=== PATIENT | female | born 1950 | race Caucasian/White ===

== ENCOUNTER 2022-02-14 09:18 | Observation (INO) | payer BC, MEDICARE ==
--- NOTE | 2022-02-14 11:03 | CT ---
EXAMINATION TYPE: CT brain wo con DATE OF EXAM: 02/14/2022 COMPARISON: None HISTORY: 71-year-old female confusion, shaky, ams TECHNIQUE: Examination was done in axial plane without intravenous contrast. Coronal and sagittal r econstructions performed. CT DLP: 1113.4 mGycm Automated exposure control for dose reduction was used. FINDINGS: There is no evidence of acute intracranial hemorrhage, acute ischemic changes, mass, mass-effect, or extra-axial fluid collection. There is no effacement of cerebral sulci or basal subarachnoid cister ns. There is no hydrocephalus. There is no midline shift. Friedman-white matter distinction is preserv ed. Paranasal sinuses and mastoid air cells are well-pneumatized. Visualized orbits and globes are intact . IMPRESSION: No acute intracranial abnormality seen.
--- NOTE | 2022-02-14 11:04 | XR ---
EXAMINATION TYPE: XR chest 2V DATE OF EXAM: 02/14/2022 COMPARISON: None HISTORY: 71-year-old female confusion, dizziness, altered mental status TECHNIQUE: AP and lateral views FINDINGS: Heart normal size. Aorta and pulmonary vasculature are within normal limits. Hazy densities related t o patient body habitus. No consolidation or pleural effusion. Spinal stimulator ray centered along th e lower thoracic spinal canal. IMPRESSION: No acute cardiopulmonary process.
[2022-02-14 11:31] LABS: Basophils % (A) 0 %; Eosinophils % (A) 1 %; HCT 32.3 % (34.0-46.0); HGB 11.2 gm/dL (11.4-16.0); Lymphocytes # (A) 0.6 k/uL (1.0-4.8); Lymphocytes % (A) 11 %; MCH 34.6 pg (25.0-35.0); MCHC 34.7 g/dL (31.0-37.0); MCV 99.8 fL (80.0-100.0); Macrocytosis Slight; Mean Platelet Volume 9.5; Monocytes # (A) 0.2 k/uL (0-1.0); Monocytes % (A) 5 %; Neutrophils # (A) 4.2 k/uL (1.3-7.7); Neutrophils % (A) 80 %; RBC 3.24 m/uL (3.80-5.40); RDW 15.4 % (11.5-15.5); WBC 5.2 k/uL (3.8-10.6)
[2022-02-14 11:39] LABS: INR 1.1 (<1.2); Partial Thromboplastin Time 24.9 sec (22.0-30.0); Prothrombin Time 11.8 sec (9.0-12.0)
[2022-02-14 11:46] LABS: ALT 72 U/L (4-34); AST 86 U/L (14-36); African American GFR (CKD) >90 (>60 ml/min/1.73 sqM); Albumin 3.3 g/dL (3.5-5.0); Alkaline Phosphatase 322 U/L (38-126); Anion Gap 6 mmol/L; Blood Urea Nitrogen 33 mg/dL (7-17); Calcium 8.5 mg/dL (8.4-10.2); Carbon Dioxide 20 mmol/L (22-30); Chloride 114 mmol/L (98-107); Glucose 218 mg/dL (74-99); Non-African American GFR(CKD) 80 (>60 ml/min/1.73 sqM); Sodium 140 mmol/L (137-145); Total Bilirubin 2.4 mg/dL (0.2-1.3); Total Protein 6.6 g/dL (6.3-8.2)
[2022-02-14 12:07] LABS: Potassium 5.4 mmol/L (3.5-5.1)
[2022-02-14 12:21] LABS: Platelet Count 68 k/uL (150-450)
--- NOTE | 2022-02-14 12:48 | ED ---
General Adult HPI - General Chief complaint: Neuro Symptoms/Deficit Stated complaint: Dizziness,AMS Time Seen by Provider: 02/14/22 10:16 Source: patient, RN notes reviewed Mode of arrival: wheelchair Limitations: no limitations - History of Present Illness Initial comments: 71 year old female presents to the emergency department for altered me ntal status. Pt family reports that yesterday at approximately 4Pm yesterday patient begain attempting to check her blood sugar with her phone, and continued to crawl out of bed and soiled her self in urine. Today she reports feeling dizzy and unsteady, however denies headache, fever, chills, chest pain, palpitations, abdominal pain, nausea, vomiting, diarrhea. She reports she takes Lactulose for her ammonia levels and did not take it yesterday. - Related Data Home Medications Medication Instructions Recorded Confirmed Ascorbic Acid [Vitamin C] 500 mg PO DAILY 02/14/22 02/14/22 Aspirin [Adult Low Dose Aspirin EC] 81 mg PO DAILY 02/14/22 02/14/22 Cholecalciferol [Vitamin D3 (25 25 mcg PO DAILY 02/14/22 02/14/22 Mcg = 1000 Iu)] Empagliflozin [Jardiance] 25 mg PO DAILY 02/14/22 02/14/22 Insulin Aspart [NovoLOG Flexpen] 30 units SQ TID 02/14/22 02/14/22 Insulin Aspart [NovoLOG Flexpen] See Protocol SQ TID 02/14/22 02/14/22 Insulin Glargine,Hum.rec.anlog 50 unit SQ BID 02/14/22 02/14/22 [Silvano Medina] Irbesartan [Avapro] 75 mg PO DAILY 02/14/22 02/14/22 Ketoconazole 2% Cream [Nizoral 2%] 1 applic TOPICAL DAILY 02/14/22 02/14/22 Lactulose [Constulose] 20 gm PO TID 02/14/22 02/14/22 Levothyroxine Sodium [Synthroid] 112 mcg PO DAILY 02/14/22 02/14/22 Meloxicam [Mobic] 15 mg PO DAILY 02/14/22 02/14/22 Multivit-Min/Iron/Folic/Lutein 1 tab PO DAILY 02/14/22 02/14/22 [Centrum Silver Women Tablet] Boomer-3 Acid Ethyl Esters [Lovaza] 1 gm PO QID 02/14/22 02/14/22 Omeprazole [PriLOSEC] 20 mg PO DAILY 02/14/22 02/14/22 Simvastatin [Zocor] 40 mg PO DAILY 02/14/22 02/14/22 Turmeric Root Extract [Turmeric 1,000 mg PO DAILY 02/14/22 02/14/22 Curcumin] traMADol HCL 50 mg PO Q4-6H PRN 02/14/22 02/14/22 Allergies Allergy/AdvReac Type Severity Reaction Status Date / Time ciprofloxacin Allergy Swelling Verified 02/14/22 11:44 levofloxacin Allergy Swelling Verified 02/14/22 11:44 shellfish derived [Shellfish] Allergy Anaphylaxis Verified 02/14/22 11:44 acetaminophen [From Vicodin] AdvReac Hallucinati Verified 02/14/22 11:44 ons hydrocodone [From Vicodin] AdvReac Hallucinati Verified 02/14/22 11:44 ons Review of Systems ROS Statement: Those systems with pertinent positive or pertinent negative responses have been documented in the HPI. ROS Other: All systems not noted in ROS Statement are negative. Past Medical History Past Medical History: Diabetes Mellitus History of Any Multi-Drug Resistant Organisms: None Reported Past Surgical History: Appendectomy, Cholecystectomy, Hysterectomy, Orthopedic Surgery, Tonsillectomy Additional Past Surgical History / Comment(s): rt intraocular lens implant, foot/toe 01/2005, left sciatic nerve, left laser aneurysm Past Psychological History: No Psychological Hx Reported Smoking Status: Never smoker Past Alcohol Use History: None Reported Past Drug Use History: None Reported General Exam Limitations: no limitations General appearance: alert, in no apparent distress Head exam: Present: atraumatic, normocephalic, normal inspection Eye exam: Present: normal appearance, PERRL, EOMI. Absent: scleral icterus, conjunctival injection, periorbital swelling ENT exam: Present: normal exam, mucous membranes moist Neck exam: Present: normal inspection. Absent: tenderness, meningismus, lymphadenopathy Respiratory exam: Present: normal lung sounds bilaterally. Absent: respiratory distress, wheezes, rales, rhonchi, stridor Cardiovascular Exam: Present: regular rate, normal rhythm, normal heart sounds. Absent: systolic murmur, diastolic murmur, rubs, gallop, clicks GI/Abdominal exam: Present: soft, normal bowel sounds. Absent: distended, tenderness, guarding, rebound, rigid Extremities exam: Present: normal inspection, full ROM, normal capillary refill. Absent: tenderness, pedal edema, joint swelling, calf tenderness Back exam: Present: normal inspection Neurological exam: Present: alert, oriented X3, CN II-XII intact Course Vital Signs 02/14/22 02/14/22 02/14/22 09:37 12:00 14:00 Temperature 97.9 F Pulse Rate 106 H 93 93 Respiratory 18 18 19 Rate Blood Pressure 143/85 O2 Sat by Pulse 100 99 Oximetry 02/14/22 16:00 Temperature Pulse Rate 92 Respiratory 20 Rate Blood Pressure O2 Sat by Pulse Oximetry - Reevaluation(s) Reevaluation #1: 02/14/22 12:48 Patient reevaluated. Patient and patient family notified awaiting Dr. Wolf [facility] will come down and evaluate the patient. Medical Decision Making - Medical Decision Making This is 71 a year old female presenting to the emergency department for altered mental status. Patient was seen and evaluated physical exam es sentially unremarkable. Lab Work and imaging ordered and performed during the course in the ED. I interpreted the following: Lab work remarkable for Ammonia 47, CT head and neck negative for evidence of intracranial hemorrhage . Due to the nature of the chief complaint it is my decision to admit the patient for further evaluation. I discussed the case with Mikael Sanches who also evaluated the patient and agrees to accept the patient for admission. I discussed the results in detail with the patient and patient family members and they are agreeable with the plan of care. P I discussed the case with Dr. Franklyn DOLL who agrees with plan. - Lab Data Result diagrams: 02/14/22 10:53 02/14/22 10:53 Lab Results 02/14/22 02/14/22 02/14/22 Range/Units 10:53 10:53 10:53 WBC 5.2 (3.8-10.6) k/uL RBC 3.24 L (3.80-5.40) m/uL Hgb 11.2 L (11.4-16.0) gm/dL Hct 32.3 L (34.0-46.0) % MCV 99.8 (80.0-100.0) fL MCH 34.6 (25.0-35.0) pg MCHC 34.7 (31.0-37.0) g/dL RDW 15.4 (11.5-15.5) % Plt Count 68 L (150-450) k/uL MPV 9.5 Neutrophils % 80 % Lymphocytes % 11 % Monocytes % 5 % Eosinophils % 1 % Basophils % 0 % Neutrophils # 4.2 (1.3-7.7) k/uL Lymphocytes # 0.6 L (1.0-4.8) k/uL Monocytes # 0.2 (0-1.0) k/uL Eosinophils # 0.0 (0-0.7) k/uL Basophils # 0.0 (0-0.2) k/uL Manual Slide Review Performed Macrocytosis Slight PT 11.8 (9.0-12.0) sec INR 1.1 (<1.2) APTT 24.9 (22.0-30.0) sec Sodium 140 (137-145) mmol/L Potassium 5.4 H (3.5-5.1) mmol/L Chloride 114 H (98-107) mmol/L Carbon Dioxide 20 L (22-30) mmol/L Anion Gap 6 mmol/L BUN 33 H (7-17) mg/dL Creatinine 0.75 (0.52-1.04) mg/dL Est GFR (CKD-EPI)AfAm >90 (>60 ml/min/1.73 sqM) Est GFR (CKD-EPI)NonAf 80 (>60 ml/min/1.73 sqM) Glucose 218 H (74-99) mg/dL Calcium 8.5 (8.4-10.2) mg/dL Total Bilirubin 2.4 H (0.2-1.3) mg/dL AST 86 H (14-36) U/L ALT 72 H (4-34) U/L Alkaline Phosphatase 322 H (38-126) U/L Ammonia (<30) umol/L Troponin I (0.000-0.034) ng/mL Total Protein 6.6 (6.3-8.2) g/dL Albumin 3.3 L (3.5-5.0) g/dL TSH (0.465-4.680) mIU/L 02/14/22 02/14/22 02/14/22 Range/Units 10:53 10:53 10:53 WBC (3.8-10.6) k/uL RBC (3.80-5.40) m/uL Hgb (11.4-16.0) gm/dL Hct (34.0-46.0) % MCV (80.0-100.0) fL MCH (25.0-35.0) pg MCHC (31.0-37.0) g/dL RDW (11.5-15.5) % Plt Count (150-450) k/uL MPV Neutrophils % % Lymphocytes % % Monocytes % % Eosinophils % % Basophils % % Neutrophils # (1.3-7.7) k/uL Lymphocytes # (1.0-4.8) k/uL Monocytes # (0-1.0) k/uL Eosinophils # (0-0.7) k/uL Basophils # (0-0.2) k/uL Manual Slide Review Macrocytosis PT (9.0-12.0) sec INR (<1.2) APTT (22.0-30.0) sec Sodium (137-145) mmol/L Potassium (3.5-5.1) mmol/L Chloride (98-107) mmol/L Carbon Dioxide (22-30) mmol/L Anion Gap mmol/L BUN (7-17) mg/dL Creatinine (0.52-1.04) mg/dL Est GFR (CKD-EPI)AfAm (>60 ml/min/1.73 sqM) Est GFR (CKD-EPI)NonAf (>60 ml/min/1.73 sqM) Glucose (74-99) mg/dL Calcium (8.4-10.2) mg/dL Total Bilirubin (0.2-1.3) mg/dL AST (14-36) U/L ALT (4-34) U/L Alkaline Phosphatase (38-126) U/L Ammonia 47 H (<30) umol/L Troponin I <0.012 (0.000-0.034) ng/mL Total Protein (6.3-8.2) g/dL Albumin (3.5-5.0) g/dL TSH 4.300 (0.465-4.680) mIU/L Disposition Clinical Impression: Altered mental status Disposition: ADMITTED IP TO THIS HOSP Condition: Fair
--- NOTE | 2022-02-14 14:43 | US ---
EXAMINATION TYPE: US abdomen limited DATE OF EXAM: 02/14/2022 COMPARISON: NONE CLINICAL HISTORY: RUQ and check for ascites. TECHNIQUE: Multiple sonographic images of the right upper quadrant are obtained. FINDINGS: EXAM MEASUREMENTS: Liver Length: 10.7 cm Gallbladder Wall: Surgically absent CBD: 0.5 cm Right Kidney: 11.3 x 4.3 x 5.1 cm KETTLE OPERATOR NOTES: Pancreas: Obscured by bowel gas Liver: wnl, small amount of fluid noted around liver. Gallbladder: Surgically absent Evidence for sonographic Marie's sign: No CBD: wnl Right Kidney: No hydronephrosis or masses seen All four quadrants scanned, there is a small amount of fluid noted around the liver, no free fluid se en on left side. IMPRESSION: 1. No evidence for drainable abdominal free fluid. 2. Trace free fluid around the liver.
--- NOTE | 2022-02-14 14:59 | P.HPIM ---
History of Present Illness H&P Date: 02/14/22 Chief Complaint: AMS Patient is a 71-year-old female with history of liver cirrhosis, hypertension, dyslipidemia, hypothyroidism, and insulin-dependent type 2 diabetes presenting with altered mental status. She claims that she had something similar about 2 years ago. Since then she's been taking lactulose with 2-3 bowel movements per day. However, she was at her family's house for her always, and did not take her lactulose. She did not have any bowel movements yesterday. Overnight she was found to be confused by family and has swelled herself in her bed. She denies any recent fevers or chills, chest pain, shortness of breath, abdominal pain, nausea, vomiting, or urinary complaints. She claims that normally she stays home with her and is able to ambulate and take her medications on her own. She denies any alcohol, smoking, or illicit drug use. In the ED, she was mildly tachycardic to 106, rest of the vital signs were otherwise within normal limits. Lab work showed mild normocytic anemia 11.2, thrombocytopenia 68, potassium of 5.4 sample hemolyzed, total bili at 2.4, mildly elevated liver function tests, elevated ammonia at 47. CT head showed no acute intracranial abnormalities. Chest x-ray showed no acute process. Patient seen and examined at bedside. Pertinent positives and negatives as discussed in HPI, a complete review of systems was performed and all other systems are negative. Vital signs reviewed General: nontoxic, no distress, appears at stated age Derm: warm, dry Head: atraumatic, normocephalic, symmetric Eyes: EOMI, no lid lag, anicteric sclera, pupils equal round reactive to light ENT: Nose and ears atraumatic Neck: No thyromegaly, supple Mouth: no lip lesion, mucus membranes moist Cardiovascular: S1S2 reg, no murmur, 2+ pitting edema up to mid shins Lungs: clear to auscultation bilateral, no rhonchi, no rales, no wheeze, no accessory muscle use Abdominal: soft, obese, nontender to palpation, no guarding, no appreciable organomegaly Ext: no gross muscle atrophy, muscle strength muscle strength 5 out of 5 in all 4 extremities, no contractures Neuro: CN II-XII grossly intact Psych: Alert, oriented x2, appropriate affect Assessment/Plan: Acute encephalopathy, likely hepatic History of liver cirrhosis Hyperammonemia Mild transaminitis Bilirubinemia -Lactulose, titrate to 2-3 bowel movements per day -Abdominal ultrasound, check for ascites -UA and urine culture -Blood cultures pending -UDS pending -TSH pending Normocytic anemia Thrombocytopenia -B-12 and folic acid pending -Iron studies Hyperkalemia -Sample hemolyzed -monitor Chronic medical problems: Hypertension Dyslipidemia Hypothyroidism Type 2 diabetes, insulin-dependent - continue home medications The patient is admitted with an anticipated less than 2 midnight stay for evaluation of acute encephalopathy. Surrogate decision-maker: spouse CODE STATUS: Full code DVT prophylaxis: lovenox Anticipated discharge date: pending clinical course Anticipated discharge place: pending clinical course A total of 55 minutes was spent on the care of this complex patient more than 50% of the time was spent in counseling and care coordination. Past Medical History Past Medical History: Diabetes Mellitus History of Any Multi-Drug Resistant Organisms: None Reported Past Surgical History: Appendectomy, Cholecystectomy, Hysterectomy, Orthopedic Surgery, Tonsillectomy Additional Past Surgical History / Comment(s): rt intraocular lens implant, foot/toe 01/2005, left sciatic nerve, left laser aneurysm Past Psychological History: No Psychological Hx Reported Smoking Status: Never smoker Past Alcohol Use History: None Reported Past Drug Use History: None Reported Medications and Allergies Home Medications Medication Instructions Recorded Confirmed Type Ascorbic Acid [Vitamin C] 500 mg PO DAILY 02/14/22 02/14/22 History Aspirin [Adult Low Dose Aspirin EC] 81 mg PO DAILY 02/14/22 02/14/22 History Cholecalciferol [Vitamin D3 (25 25 mcg PO DAILY 02/14/22 02/14/22 History Mcg = 1000 Iu)] Empagliflozin [Jardiance] 25 mg PO DAILY 02/14/22 02/14/22 History Insulin Aspart [NovoLOG Flexpen] 30 units SQ TID 02/14/22 02/14/22 History Insulin Aspart [NovoLOG Flexpen] See Protocol SQ TID 02/14/22 02/14/22 History Insulin Glargine,Hum.rec.anlog 50 unit SQ BID 02/14/22 02/14/22 History [Silvano Medina] Irbesartan [Avapro] 75 mg PO DAILY 02/14/22 02/14/22 History Ketoconazole 2% Cream [Nizoral 2%] 1 applic TOPICAL DAILY 02/14/22 02/14/22 History Lactulose [Constulose] 20 gm PO TID 02/14/22 02/14/22 History Levothyroxine Sodium [Synthroid] 112 mcg PO DAILY 02/14/22 02/14/22 History Meloxicam [Mobic] 15 mg PO DAILY 02/14/22 02/14/22 History Multivit-Min/Iron/Folic/Lutein 1 tab PO DAILY 02/14/22 02/14/22 History [Centrum Silver Women Tablet] Ferdinand-3 Acid Ethyl Esters [Lovaza] 1 gm PO QID 02/14/22 02/14/22 History Omeprazole [PriLOSEC] 20 mg PO DAILY 02/14/22 02/14/22 History Simvastatin [Zocor] 40 mg PO DAILY 02/14/22 02/14/22 History Turmeric Root Extract [Turmeric 1,000 mg PO DAILY 02/14/22 02/14/22 History Curcumin] traMADol HCL 50 mg PO Q4-6H PRN 02/14/22 02/14/22 History Allergies Allergy/AdvReac Type Severity Reaction Status Date / Time ciprofloxacin Allergy Swelling Verified 02/14/22 11:44 levofloxacin Allergy Swelling Verified 02/14/22 11:44 shellfish derived [Shellfish] Allergy Anaphylaxis Verified 02/14/22 11:44 acetaminophen [From Vicodin] AdvReac Hallucinati Verified 02/14/22 11:44 ons hydrocodone [From Vicodin] AdvReac Hallucinati Verified 02/14/22 11:44 ons Physical Exam Vitals: Vital Signs Temp Pulse Resp BP Pulse Ox 02/14/22 09:37 97.9 F 106 H 18 143/85 100 Intake and Output 02/13/22 02/14/22 02/14/22 22:59 06:59 14:59 Other: Weight 95.254 kg Results CBC & Chem 7: 02/14/22 10:53 02/14/22 10:53 Labs: Abnormal Lab Results - Last 24 Hours (Table) 02/14/22 02/14/22 02/14/22 Range/Units 10:53 10:53 10:53 RBC 3.24 L (3.80-5.40) m/uL Hgb 11.2 L (11.4-16.0) gm/dL Hct 32.3 L (34.0-46.0) % Plt Count 68 L (150-450) k/uL Lymphocytes # 0.6 L (1.0-4.8) k/uL Potassium 5.4 H (3.5-5.1) mmol/L Chloride 114 H (98-107) mmol/L Carbon Dioxide 20 L (22-30) mmol/L BUN 33 H (7-17) mg/dL Glucose 218 H (74-99) mg/dL Total Bilirubin 2.4 H (0.2-1.3) mg/dL AST 86 H (14-36) U/L ALT 72 H (4-34) U/L Alkaline Phosphatase 322 H (38-126) U/L Ammonia 47 H (<30) umol/L Albumin 3.3 L (3.5-5.0) g/dL
[2022-02-14] MEDS ORDERED: DEXTROSE 50% SYRINGE 50 ML IVP PRN ×2 (15:01)
[2022-02-14] MEDS ORDERED: NALOXONE 0.4 MG/ML 1 ML VIAL IV PRN (15:02)
[2022-02-14] MEDS ORDERED: NON FORMULARY DRUG (Omega-3 Acid Ethyl Esters [Lovaza] 1 GM Capsule) PO SCH (18:00)
[2022-02-14 18:40] LABS: Glucose,Whole Blood 290 mg/dL (70-110)
[2022-02-14] MEDS: INSULIN ASPART (NovoLOG) 100 UNIT/ML VIAL SQ SCH ×3 (18:50→21:16)
[2022-02-14] MEDS: LACTULOSE 20 GM/30 ML CUP PO SCH ×2 (18:51→21:16)
[2022-02-14 21:04] LABS: Glucose,Whole Blood 248 mg/dL (70-110)
[2022-02-14] MEDS: INSULIN DETEMIR (LEVEMIR) 100 UNIT/ML SYR SQ SCH (21:16)
[2022-02-14 22:56] LABS: Iron 133 ug/dL (50-170); Total Iron Binding Capacity 312 ug/dL (228-460)
[2022-02-15 03:25] LABS: Appearance,Urine Cloudy (Clear); Bacteria,Urine Moderate /hpf; Bilirubin,Urine Negative (Negative); Blood,Urine Negative (Negative); Color,Urine Yellow; Glucose,Urine (UA) 3+ (Negative); Hyaline Casts,Urine 1 /lpf (0-2); Ketones,Urine Negative (Negative); Leukocyte Esterase,Urine Large (Negative); Mucus,Urine Rare /hpf; Nitrite,Urine Positive (Negative); PH, Urine 5.5 (5.0-8.0); Protein,Urine Negative (Negative); RBC,Urine 2 /hpf (0-5); Specific Gravity,Urine 1.023 (1.001-1.035); Squamous Epithelial Cell,Urine 2 /hpf (0-4); Urobilinogen,Urine <2.0 mg/dL (<2.0); WBC,Urine 90 /hpf (0-5)
[2022-02-15 03:26] LABS: Amphetamine Screen,Urine Not Detected (NotDetected); Barbiturate Screen,Urine Not Detected (NotDetected); Benzodiazepines Screen,Urine Not Detected (NotDetected); Cocaine Screen,Urine Not Detected (NotDetected); Methadone Screen, Urine Not Detected (NotDetected); Opiate Screen,Urine Not Detected (NotDetected); Oxycodone Screen, Urine Not Detected (NotDetected); Phencyclidine Screen,Urine Not Detected (NotDetected); Tricyclic Antidepressant,Urine Not Detected (NotDetected); Urn Cannabinoid Scrn Not Detected (NotDetected)
[2022-02-15 06:29] LABS: Glucose,Whole Blood 65 mg/dL (70-110)
[2022-02-15] MEDS: INSULIN ASPART (NovoLOG) 100 UNIT/ML VIAL SQ SCH ×7 (06:39→21:25)
[2022-02-15] MEDS: INSULIN DETEMIR (LEVEMIR) 100 UNIT/ML SYR SQ SCH ×2 (06:39→21:28)
[2022-02-15] MEDS: PANTOPRAZOLE 40 MG TABLET PO SCH (06:50)
[2022-02-15] MEDS: LEVOTHYROXINE 112 MCG TAB PO SCH (06:50)
[2022-02-15 07:41] LABS: Glucose,Whole Blood 126 mg/dL (70-110)
[2022-02-15] MEDS: CHOLECALCIFEROL 25 MCG (1000 IU) TABLET PO SCH (09:54)
[2022-02-15] MEDS: ASCORBIC ACID 500 MG TAB PO SCH (09:54)
[2022-02-15] MEDS: LOSARTAN 25 MG TAB PO SCH (09:54)
[2022-02-15] MEDS: ASPIRIN 81 MG PO SCH (09:54)
[2022-02-15] MEDS: ENOXAPARIN 40 MG/0.4 ML SYRINGE SQ SCH (09:54)
[2022-02-15] MEDS: DAPAGLIFLOZIN PROPANEDIOL 10 MG TABLET PO SCH (09:54)
[2022-02-15] MEDS: ATORVASTATIN 20 MG TAB PO SCH (09:54)
[2022-02-15] MEDS: MULTIVITAMINS, THERA 1 EACH TAB PO SCH (09:54)
[2022-02-15] MEDS: LACTULOSE 20 GM/30 ML CUP PO SCH ×3 (10:04→21:53)
[2022-02-15 10:36] LABS: African American GFR (CKD) 85.4 (60.0-200.0); Albumin/Globulin Ratio 1.25 (1.60-3.17); Anion Gap 7.1 mmol/L (10.00-18.00); BUN/Creat Ratio 30.63 Ratio (12.00-20.00); Blood Urea Nitrogen 24.5 mg/dL (9.0-27.0); Calcium 8.8 mg/dL (8.7-10.3); Carbon Dioxide 20.9 mmol/L (20.0-27.5); Globulin 2.4 g/dL (1.6-3.3); Non-African American GFR(CKD) 73.7 (60.0-200.0); Potassium 4.2 mmol/L (3.5-5.5); Total Bilirubin 1.2 mg/dL (0.30-1.20); Total Protein 5.4 g/dL (6.2-8.2)
--- NOTE | 2022-02-15 10:50 | P.PN ---
Subjective Progress Note Date: 02/15/22 Principal diagnosis: AMS Hospital Course: Patient is a 71-year-old female with history of liver cirrhosis, hypertension, dyslipidemia, hypothyroidism, and insulin-dependent type 2 diabetes presenting with altered mental status. In the ED, she was mildly tachycardic to 106, rest of the vital signs were otherwise within normal limits. Lab work showed mild normocytic anemia 11.2, thrombocytopenia 68, potassium of 5.4 sample hemolyzed, total bili at 2.4, mildly elevated liver function tests, elevated ammonia at 47. CT head showed no acute intracranial abnormalities. Chest x-ray showed no acute process. UA showed elevated nitrites, leukocyte esterase, patient started on IV ceftriaxone. Subjective: Patient seen and examined at bedside. No acute events overnight. She denies any chest pain, shortness of breath, abdominal pain, nausea, vomiting, diarrhea, constipation, or urinary complaints. Pertinent positives and negatives as discussed above, a complete review of systems was performed and all other systems are negative. Vitals Signs Reviewed. General: nontoxic, no distress, appears at stated age Derm: warm, dry Head: atraumatic, normocephalic, symmetric Eyes: EOMI, no lid lag, anicteric sclera, pupils equal round reactive to light ENT: Nose and ears atraumatic Neck: No thyromegaly, supple Mouth: no lip lesion, mucus membranes moist Cardiovascular: S1S2 reg, no murmur, 2+ pitting edema up to mid shins Lungs: clear to auscultation bilateral, no rhonchi, no rales, no wheeze, no accessory muscle use Abdominal: soft, obese, nontender to palpation, no guarding, no appreciable organomegaly Ext: no gross muscle atrophy, muscle strength muscle strength 5 out of 5 in all 4 extremities, no contractures Neuro: CN II-XII grossly intact Psych: Alert, oriented x2, appropriate affect Assessment and Plan: Acute encephalopathy, likely hepatic vs metabolic Urinary tract infection History of liver cirrhosis Hyperammonemia Mild transaminitis Bilirubinemia -Lactulose, titrate to 2-3 bowel movements per day, dose increased -Abdominal ultrasound, minimal ascities -UA consistent with UTI, cx pending -Blood cultures pending -UDS negative -TSH normal -Patient started on IV ceftriaxone Normocytic anemia Thrombocytopenia -B-12 and folic acid normal -Iron studies normal -Bicytopenia likely in the setting of liver disease Chronic medical problems: Hypertension Dyslipidemia Hypothyroidism Type 2 diabetes, insulin-dependent - continue home medications DVT ppx: Lovenox Code status: Full code Anticipated discharge place: Home Anticipated discharge time: 2+ days Objective - Vital Signs Vital signs: Vital Signs Temp 98.1 F 02/15/22 07:45 Pulse 92 02/15/22 07:45 Resp 18 02/15/22 07:45 BP 130/62 02/15/22 07:45 Pulse Ox 99 02/15/22 07:45 FiO2 Intake & Output 02/14/22 02/15/22 02/15/22 18:59 06:59 18:59 Weight 95.254 kg 95.254 kg Other: Voiding Method Bedside Commode # Voids 2 1 # Bowel Movements 1 1 - Labs CBC & Chem 7: 02/14/22 10:53 02/15/22 06:52 Labs: Abnormal Lab Results - Last 24 Hours (Table) 02/14/22 02/14/22 02/14/22 Range/Units 10:53 10:53 10:53 RBC 3.24 L (3.80-5.40) m/uL Hgb 11.2 L (11.4-16.0) gm/dL Hct 32.3 L (34.0-46.0) % Plt Count 68 L (150-450) k/uL Lymphocytes # 0.6 L (1.0-4.8) k/uL Potassium 5.4 H (3.5-5.1) mmol/L Chloride 114 H (98-107) mmol/L Carbon Dioxide 20 L (22-30) mmol/L Anion Gap (10.00-18.00) mmol/L BUN 33 H (7-17) mg/dL BUN/Creatinine Ratio (12.00-20.00) Ratio Glucose 218 H (74-99) mg/dL POC Glucose (mg/dL) (70-110) mg/dL Hemoglobin A1c (0.0-6.0) % Total Bilirubin 2.4 H (0.2-1.3) mg/dL AST 86 H (14-36) U/L ALT 72 H (4-34) U/L Alkaline Phosphatase 322 H (38-126) U/L Ammonia 47 H (<30) umol/L Total Protein (6.2-8.2) g/dL Albumin 3.3 L (3.5-5.0) g/dL Albumin/Globulin Ratio (1.60-3.17) g/dL Urine Appearance (Clear) Urine Glucose (UA) (Negative) Urine Nitrite (Negative) Ur Leukocyte Esterase (Negative) Urine WBC (0-5) /hpf Urine WBC Clumps (None) /hpf Urine Bacteria (None) /hpf Urine Mucus (None) /hpf 02/14/22 02/14/22 02/14/22 Range/Units 10:53 18:39 21:02 RBC (3.80-5.40) m/uL Hgb (11.4-16.0) gm/dL Hct (34.0-46.0) % Plt Count (150-450) k/uL Lymphocytes # (1.0-4.8) k/uL Potassium (3.5-5.1) mmol/L Chloride (98-107) mmol/L Carbon Dioxide (22-30) mmol/L Anion Gap (10.00-18.00) mmol/L BUN (7-17) mg/dL BUN/Creatinine Ratio (12.00-20.00) Ratio Glucose (74-99) mg/dL POC Glucose (mg/dL) 290 H 248 H (70-110) mg/dL Hemoglobin A1c 7.4 H (0.0-6.0) % Total Bilirubin (0.2-1.3) mg/dL AST (14-36) U/L ALT (4-34) U/L Alkaline Phosphatase (38-126) U/L Ammonia (<30) umol/L Total Protein (6.2-8.2) g/dL Albumin (3.5-5.0) g/dL Albumin/Globulin Ratio (1.60-3.17) g/dL Urine Appearance (Clear) Urine Glucose (UA) (Negative) Urine Nitrite (Negative) Ur Leukocyte Esterase (Negative) Urine WBC (0-5) /hpf Urine WBC Clumps (None) /hpf Urine Bacteria (None) /hpf Urine Mucus (None) /hpf 02/15/22 02/15/22 02/15/22 Range/Units 02:15 06:28 06:52 RBC (3.80-5.40) m/uL Hgb (11.4-16.0) gm/dL Hct (34.0-46.0) % Plt Count (150-450) k/uL Lymphocytes # (1.0-4.8) k/uL Potassium (3.5-5.1) mmol/L Chloride 117 H (98-107) mmol/L Carbon Dioxide (22-30) mmol/L Anion Gap 7.10 L (10.00-18.00) mmol/L BUN (7-17) mg/dL BUN/Creatinine Ratio 30.63 H (12.00-20.00) Ratio Glucose (74-99) mg/dL POC Glucose (mg/dL) 65 L (70-110) mg/dL Hemoglobin A1c (0.0-6.0) % Total Bilirubin (0.2-1.3) mg/dL AST 67 H (14-36) U/L ALT 68 H (4-34) U/L Alkaline Phosphatase 163 H (38-126) U/L Ammonia (<30) umol/L Total Protein 5.4 L (6.2-8.2) g/dL Albumin 3.0 L (3.5-5.0) g/dL Albumin/Globulin Ratio 1.25 L (1.60-3.17) g/dL Urine Appearance Cloudy H (Clear) Urine Glucose (UA) 3+ H (Negative) Urine Nitrite Positive H (Negative) Ur Leukocyte Esterase Large H (Negative) Urine WBC 90 H (0-5) /hpf Urine WBC Clumps Occasional H (None) /hpf Urine Bacteria Moderate H (None) /hpf Urine Mucus Rare H (None) /hpf 02/15/22 Range/Units 07:39 RBC (3.80-5.40) m/uL Hgb (11.4-16.0) gm/dL Hct (34.0-46.0) % Plt Count (150-450) k/uL Lymphocytes # (1.0-4.8) k/uL Potassium (3.5-5.1) mmol/L Chloride (98-107) mmol/L Carbon Dioxide (22-30) mmol/L Anion Gap (10.00-18.00) mmol/L BUN (7-17) mg/dL BUN/Creatinine Ratio (12.00-20.00) Ratio Glucose (74-99) mg/dL POC Glucose (mg/dL) 126 H (70-110) mg/dL Hemoglobin A1c (0.0-6.0) % Total Bilirubin (0.2-1.3) mg/dL AST (14-36) U/L ALT (4-34) U/L Alkaline Phosphatase (38-126) U/L Ammonia (<30) umol/L Total Protein (6.2-8.2) g/dL Albumin (3.5-5.0) g/dL Albumin/Globulin Ratio (1.60-3.17) g/dL Urine Appearance (Clear) Urine Glucose (UA) (Negative) Urine Nitrite (Negative) Ur Leukocyte Esterase (Negative) Urine WBC (0-5) /hpf Urine WBC Clumps (None) /hpf Urine Bacteria (None) /hpf Urine Mucus (None) /hpf Microbiology - Last 24 Hours (Table) 02/15/22 02:15 Urine Culture - Preliminary Urine,Voided
[2022-02-15 11:18] LABS: Basophils # (A) 0.01 X 10*3/uL (0.00-0.10); Basophils % (A) 0.3 %; Eosinophils # (A) 0.06 X 10*3/uL (0.04-0.35); Eosinophils % (A) 1.6 %; HCT 28.9 % (37.2-46.3); HGB 9.5 g/dL (12.0-15.0); Immature Grans, Automated 0.3 %; Immature Platelet Fraction 3.7 % (1.1-6.1); Lymphocytes # (A) 1.15 X 10*3/uL (0.90-5.00); Lymphocytes % (A) 30.8 %; MCH 33.6 pg (27.0-32.0); MCHC 32.9 g/dL (32.0-37.0); MCV 102.1 fL (80.0-97.0); Mean Platelet Volume 11.3 fL (9.5-12.2); Monocytes # (A) 0.62 X 10*3/uL (0.20-1.00); Monocytes % (A) 16.6 %; NRBC Per 100 WBC 0 /100 WBCS (0.0-0.0); Neutrophils # (A) 1.88 X 10*3/uL (1.80-7.70); Neutrophils % (A) 50.4 %; Platelet Count 62 X 10*3/uL (140-440); RBC 2.83 X 10*6/uL (4.10-5.20); RDW 16.5 % (11.5-14.5); WBC 3.73 X 10*3/uL (4.50-10.00)
[2022-02-15 12:10] LABS: Glucose,Whole Blood 164 mg/dL (70-110)
[2022-02-15 17:29] LABS: Glucose,Whole Blood 249 mg/dL (70-110)
[2022-02-15 20:43] LABS: Glucose,Whole Blood 125 mg/dL (70-110)
[2022-02-16 00:09] LABS: Glucose,Whole Blood 41 mg/dL (70-110)
[2022-02-16 00:11] LABS: Glucose,Whole Blood 40 mg/dL (70-110)
[2022-02-16 00:32] LABS: Glucose,Whole Blood 66 mg/dL (70-110)
[2022-02-16 00:58] VITALS: RESP 18
[2022-02-16 01:18] LABS: Glucose,Whole Blood 133 mg/dL (70-110)
[2022-02-16 06:21] LABS: Glucose,Whole Blood 131 mg/dL (70-110)
[2022-02-16 06:24] LABS: Glucose,Whole Blood 150 mg/dL (70-110)
[2022-02-16] MEDS: INSULIN ASPART (NovoLOG) 100 UNIT/ML VIAL SQ SCH ×2 (06:24→09:39)
[2022-02-16] MEDS: PANTOPRAZOLE 40 MG TABLET PO SCH (06:24)
[2022-02-16] MEDS: LEVOTHYROXINE 112 MCG TAB PO SCH (06:24)
[2022-02-16 07:33] LABS: Glucose,Whole Blood 153 mg/dL (70-110)
[2022-02-16 07:54] VITALS: BP 150/67; PULSE 81; TEMP 97.6
[2022-02-16] MEDS: ENOXAPARIN 40 MG/0.4 ML SYRINGE SQ SCH (09:31)
[2022-02-16] MEDS: CHOLECALCIFEROL 25 MCG (1000 IU) TABLET PO SCH (09:31)
[2022-02-16] MEDS: ASPIRIN 81 MG PO SCH (09:31)
[2022-02-16] MEDS: ATORVASTATIN 20 MG TAB PO SCH (09:31)
[2022-02-16] MEDS: ASCORBIC ACID 500 MG TAB PO SCH (09:31)
[2022-02-16] MEDS: LOSARTAN 25 MG TAB PO SCH (09:31)
[2022-02-16] MEDS: MULTIVITAMINS, THERA 1 EACH TAB PO SCH (09:31)
[2022-02-16] MEDS: DAPAGLIFLOZIN PROPANEDIOL 10 MG TABLET PO SCH (09:31)
[2022-02-16 09:32] LABS: Glucose,Whole Blood 226 mg/dL (70-110)
[2022-02-16] MEDS: LACTULOSE 20 GM/30 ML CUP PO SCH (09:32)
[2022-02-16] MEDS: INSULIN DETEMIR (LEVEMIR) 100 UNIT/ML SYR SQ SCH (10:53)
--- NOTE | 2022-02-16 11:08 | P.DS ---
Providers Date of admission: 02/14/22 14:44 Expected date of discharge: 02/16/22 Attending physician: Jair Wolf MD Primary care physician: Physician Nonstaff Hospital Course: Discharge Diagnosis: Acute encephalopathy, likely hepatic Urinary tract infection History of liver cirrhosis Hyperammonemia Mild transaminitis Bilirubinemia Normocytic anemia Thrombocytopenia Hypoglycemia Insulin-dependent type 2 diabetes Hospital Course: Patient is a 71-year-old female with history of liver cirrhosis, hypertension, dyslipidemia, hypothyroidism, and insulin-dependent type 2 diabetes presenting with altered mental status. In the ED, she was mildly tachycardic to 106, rest of the vital signs were otherwise within normal limits. Lab work showed mild normocytic anemia 11.2, thrombocytopenia 68, potassium of 5.4 sample hemolyzed, total bili at 2.4, mildly elevated liver function tests, elevated ammonia at 47. CT head showed no acute intracranial abnormalities. Chest x-ray showed no acute process. UA showed elevated nitrites, leukocyte esterase, patient started on IV ceftriaxone. Acute encephalopathy likely in the setting of hepatic disorder as well as urinary tract infection. At the time of discharge, patient is back to baseline in terms of mental status. She will be discharged home oral antibiotics. She also had few episodes of hypoglycemia as an inpatient. He was likely in the setting of poor oral intake being hospitalized. Her A1c is 7.4. She will be discharged on half her dose of insulin at home. She will have a close follow-up with her primary care doctor for further titration of insulin. Patient seen and examined at bedside. Vital signs reviewed and stable. General: nontoxic, no distress, appears at stated age Derm: warm, dry Head: atraumatic, normocephalic, symmetric Eyes: EOMI, no lid lag, anicteric sclera Mouth: no lip lesion, mucus membranes moist Cardiovascular: S1S2 reg, no murmur Lungs: CTA bilateral, no rhonchi, no rales , no accessory muscle use Abdominal: soft, nontender to palpation, no guarding, no appreciable organomegaly Ext: no gross muscle atrophy, no edema, no contractures Neuro: CN II-XI grossly intact, no focal neuro deficits Psych: Alert, oriented, appropriate affect A total of 39 minutes of time were spent preparing this complex discharge summary. Patient was discharged on 02/16/22 at 9:56. Patient Condition at Discharge: Stable Plan - Discharge Summary New Discharge Prescriptions: New Cefdinir 300 mg PO Q12HR #8 cap Continue Cholecalciferol [Vitamin D3 (25 Mcg = 1000 Iu)] 25 mcg PO DAILY Ascorbic Acid [Vitamin C] 500 mg PO DAILY Turmeric Root Extract [Turmeric Curcumin] 1,000 mg PO DAILY Simvastatin [Zocor] 40 mg PO DAILY Insulin Aspart [NovoLOG Flexpen] See Protocol SQ TID Meloxicam [Mobic] 15 mg PO DAILY Levothyroxine Sodium [Synthroid] 112 mcg PO DAILY Ketoconazole 2% Cream [Nizoral 2%] 1 applic TOPICAL DAILY Irbesartan [Avapro] 75 mg PO DAILY Multivit-Min/Iron/Folic/Lutein [Centrum Silver Women Tablet] 1 tab PO DAILY Aspirin [Adult Low Dose Aspirin EC] 81 mg PO DAILY Empagliflozin [Jardiance] 25 mg PO DAILY traMADol HCL 50 mg PO Q4-6H PRN PRN Reason: Pain Omeprazole [PriLOSEC] 20 mg PO DAILY [place]-3 Acid Ethyl Esters [Lovaza] 1 gm PO QID Lactulose [Constulose] 20 gm PO TID Changed Insulin Aspart [NovoLOG Flexpen] 15 units SQ TID #0 Insulin Glargine,Hum.rec.anlog [Toujeo Solostar] 25 unit SQ BID #0 Discharge Medication List Ascorbic Acid [Vitamin C] 500 mg PO DAILY 02/14/22 [History] Aspirin [Adult Low Dose Aspirin EC] 81 mg PO DAILY 02/14/22 [History] Cholecalciferol [Vitamin D3 (25 Mcg = 1000 Iu)] 25 mcg PO DAILY 02/14/22 [History] Empagliflozin [Jardiance] 25 mg PO DAILY 02/14/22 [History] Insulin Aspart [NovoLOG Flexpen] See Protocol SQ TID 02/14/22 [History] Irbesartan [Avapro] 75 mg PO DAILY 02/14/22 [History] Ketoconazole 2% Cream [Nizoral 2%] 1 applic TOPICAL DAILY 02/14/22 [History] Lactulose [Constulose] 20 gm PO TID 02/14/22 [History] Levothyroxine Sodium [Synthroid] 112 mcg PO DAILY 02/14/22 [History] Meloxicam [Mobic] 15 mg PO DAILY 02/14/22 [History] Multivit-Min/Iron/Folic/Lutein [Centrum Silver Women Tablet] 1 tab PO DAILY 02/14/22 [History] [place]-3 Acid Ethyl Esters [Lovaza] 1 gm PO QID 02/14/22 [History] Omeprazole [PriLOSEC] 20 mg PO DAILY 02/14/22 [History] Simvastatin [Zocor] 40 mg PO DAILY 02/14/22 [History] Turmeric Root Extract [Turmeric Curcumin] 1,000 mg PO DAILY 02/14/22 [History] traMADol HCL 50 mg PO Q4-6H PRN 02/14/22 [History] Cefdinir 300 mg PO Q12HR #8 cap 02/16/22 [Rx] Insulin Aspart [NovoLOG Flexpen] 15 units SQ TID #0 02/16/22 [Rx] Insulin Glargine,Hum.rec.anlog [Touyelitzao Solostar] 25 unit SQ BID #0 02/16/22 [Rx] Follow up Appointment(s)/Referral(s): Nonstaff,Physician [Primary Care Provider] - 1-2 days Patient Instructions/Handouts: Urinary Tract Infection in Women (DC), Hepatic Encephalopathy (DC) Activity/Diet/Wound Care/Special Instructions: Please see your PCP within 1-2 days. Your insulin was cut in half. You may need further adjustments by your PCP. Also, please see your GI specialist for liver disease. Discharge Disposition: HOME SELF-CARE
== END 2022-02-16 12:25 | disposition home or self-care (01) ==
LOC: EC 09:18 → 6NMEDSUR 14:44
PROVIDERS: ADMIT Student in an Organized Health Care Education/Training Program; ATTEND Student in an Organized Health Care Education/Training Program
DX: G93.40 Encephalopathy, unspecified (principal); E11.649 Type 2 diabetes mellitus with hypoglycemia without coma; N39.0 Urinary tract infection, site not specified; E03.9 Hypothyroidism, unspecified; I10 Essential (primary) hypertension; E78.5 Hyperlipidemia, unspecified; K74.60 Unspecified cirrhosis of liver; E87.5 Hyperkalemia; D64.9 Anemia, unspecified; E66.9 Obesity, unspecified; D69.6 Thrombocytopenia, unspecified; Z79.82 Long term (current) use of aspirin; Z79.84 Long term (current) use of oral hypoglycemic drugs; Z79.4 Long term (current) use of insulin; Z79.899 Other long term (current) drug therapy; Z79.890 Hormone replacement therapy; Z79.1 Long term (current) use of non-steroidal anti-inflammatories (NSAID); Z88.1 Allergy status to other antibiotic agents; Z90.49 Acquired absence of other specified parts of digestive tract; Z90.710 Acquired absence of both cervix and uterus; Z68.37 Body mass index [BMI] 37.0-37.9, adult
CPT/HCPCS: 96365; 96366 ×2; 96372 ×2; 99285; 36415; 94760; 80053 ×2; 84443; 82607; 82140; 82746; 83540; 83550; 84484; 85025 ×2; 85610; 85730; 81001; 87040; 80306; 87086; 87077; 87186; 83036; 71046; 76705; 70450; G0378 ×3; J1650 ×2; J0696 ×2